=== PATIENT | male | born 1955 | race Caucasian/White ===

== ENCOUNTER 2025-08-05 09:44 | Emergency (ER) | payer OTHER, BC ==
[2025-08-05] MEDS ORDERED: KETOROLAC 30 MG/ML INJ ONE (10:11)
[2025-08-05] MEDS ORDERED: NA CHLORIDE 0.9% 500 ML ONE (10:11)
[2025-08-05] MEDS ORDERED: TAMSULOSIN 0.4 MG SR CAP ONE (10:11)
[2025-08-05] MEDS ORDERED: MAGNESIUM SULFATE 1 gm IVPB 1 GM/100 ML BAG IV ONE (10:12)
[2025-08-05 10:35] LABS: Absolute Lymphocytes (CBC) 0.9 K/uL (0.7-4.9); Hematocrit 40.8 % (39.6-49.0); Hemoglobin 14.0 g/dL (13.6-17.9); MCH 28.8 pg (27.0-35.0); MCHC 34.4 g/dL (32.0-36.0); MCV 83.7 fL (80-100); MPV 8.3 fL (7.6-11.3); Nucleated RBC Absolute Count 0.0 (0-0); Nucleated Red Blood Cells % 0.0 % (0-0); RBC Red Blood Cell Count 4.87 M/uL (4.33-5.43); White Blood Count 12.30 thou/uL (4.3-10.9)
--- NOTE | 2025-08-05 10:44 | RAD REPORT ---
Stone Protocol CLINICAL INDICATION: Male, 70 years old.right flank pain TECHNIQUE: CT abdomen and pelvis was performed, without IV contrast, as per department protocol using a CT stone protocol. Axial, sagittal and coronal reconstructions were obtained. One or more of the following dose reduction techniques were used: Automated exposure control, adjustment of the mA and/o r kV according to the patient size, and/or iterative reconstruction. Unless otherwise specified, incidental findings do not require dedicated imaging follow-up. [id number]. IV CONTRAST: Not administered. COMPARISON: No prior exams FINDINGS: The lack of intravenous contrast limits the sensitivity of this exam for evaluation of solid visceral organs, vascular structures, and retroperitoneum. LOWER CHEST: No acute process identified. No significant pericardial effusion. Mild coronary artery c alcifications. UPPER GI: No significant abnormality. LIVER: Hepatic steatosis, but otherwise unremarkable. GALLBLADDER/BILE DUCTS: Cholelithiasis without CT evidence of acute cholecystitis.? PANCREAS: No mass, ductal dilation, or ivanna-pancreatic fluid. SPLEEN: Unremarkable. ADRENALS: No adrenal masses. KIDNEYS AND URETERS: Moderate right-sided hydronephrosis secondary to a 9 mm stone at the right UPJ. Probable right interpolar renal cyst.. Limited evaluation for renal lesions in the absence of IV contrast. No renal calculi. ABDOMINAL AORTA AND OTHER VESSELS: Moderate atherosclerotic changes without aortic aneurysm. PERITONEUM: Small focus of nonspecific fat stranding the sigmoid mesocolon is probably of little acut e clinical significance. It could represent a remote omental infarct. LYMPH NODES: No pathologic lymphadenopathy. ABDOMINAL WALL: Small fat containing umbilical hernia. SMALL BOWEL/COLON: Small bowel has normal course and caliber. No colonic wall thickening or pericolon ic inflammatory changes. Normal appendix. Mild diverticulosis without diverticulitis. URINARY BLADDER: Underdistended but grossly unremarkable. REPRODUCTIVE ORGANS: No pathologic process. MUSCULOSKELETAL: Remote L2 and L3 compression fractures. ADDITIONAL FINDINGS: None. IMPRESSION: Moderate right-sided hydronephrosis secondary to a 9 mm stone at the right UPJ.
[2025-08-05 10:57] LABS: Anion Gap 10.9 mEq/L (5.0-15.0); BUN Blood Urea Nitrogen 16.0 mg/dL (7-18); Glucose Level 150.0 mg/dL (74-106); Potassium 3.9 mEq/L (3.5-5.1)
[2025-08-05 11:22] LABS: Sqamous Epithelial <5 /HPF (None Seen); Urine Crystals Unidentified Few /HPF (None Seen); Urine Culture Reflex Order NOT NEEDED; Urine Microscopic Reflex YN ORDER UMIC
[2025-08-05 11:35] LABS: Differential Total Cells Count 100; Segmented Neutrophils 87 % (40-80); Smudge Cells NOTED; Toxic Granulation PRESENT; White Blood Cell Scan DIFF (OK)
[2025-08-05 11:36] LABS: Anisocytosis 1+; Blood Morphology Comment NOTED (NOT SEEN); Ovalocytes SLIGHT; Poikilocytosis SLIGHT; Polychromasia SLIGHT; Stomatocytes 1+; Teardrop Cell FEW
--- NOTE | 2025-08-05 13:23 | EDPHYS ---
Physician Documentation [facility] Name: Trent Mar Jr Age: 70 yrs Sex: Male : 1955 Arrival Date: 08/05/2025 Time: 09:44 Bed 19 Private MD: ED Physician Chavo Florence HPI: 08/05 10:03 This 70 yrs old Male presents to ER via Ambulatory with complaints of Low Back Pain. rn 10:03 Patient reports right lower back pain that radiates to the groin, history of kidney rn stones and this feels identical. Has required multiple interventions in the past. Now pain has decreased significantly for the last 2 hours. Had hematuria yesterday, no hematuria today. No signs of retention. No fever or chills.. Historical: - Allergies: 10:15 No Known Allergies; ll1 - PMHx: 09:57 Kidney stone; ll1 10:15 Hypertensive disorder; Hypercholesterolemia; ll1 - PSHx: 09:57 Lithotripsy; kidney stent; ll1 - Immunization history:: Adult Immunizations up to date. - Infectious Disease History:: Denies. - Social history:: Smoking status: Patient denies any tobacco usage or history of. - Family history:: not pertinent. - Hospitalizations: : No recent hospitalization is reported. ROS: 10:03 Constitutional: Negative for fever, chills, and weight loss, Cardiovascular: Negative rn for chest pain, palpitations, and edema, Respiratory: Negative for shortness of breath, cough, wheezing, and pleuritic chest pain, Abdomen/GI: Negative for abdominal pain, nausea, vomiting, diarrhea, and constipation, Back: Positive for right lower back pain : Positive for hematuria yesterday, none today Neuro: Negative for headache, weakness, numbness, tingling, and seizure, Exam: 10:03 Constitutional: This is a well developed, well nourished patient who is awake, alert, rn and in no acute distress. Cardiovascular: Regular rate and rhythm. No pulse deficits. Respiratory: Speaking full sentences, unlabored. No increased work of breathing, no retractions or nasal flaring. Abdomen/GI: Soft, nontender Back: No CVA tenderness Vital Signs: 09:57 BP 196 / 102; Pulse 87; Resp 17; Temp 97.8(O); Pulse Ox 95% on R/A; Weight 111.13 kg; ll1 Height 5 ft. 10 in. ; Pain 2/10; 10:30 BP 150 / 69; Pulse 70; Resp 20; Pulse Ox 93% on R/A; Pain 4/10; ar8 11:30 BP 155 / 76; Pulse 72; Resp 20; Pulse Ox 94% on R/A; ar8 12:15 BP 140 / 76; Pulse 64; Resp 18; Pulse Ox 92% on R/A; ar8 13:15 BP 148 / 91; Pulse 71; Resp 18; Pulse Ox 95% on R/A; ar8 13:35 Pain 0/10; ar8 09:57 Body Mass Index 35.15 (111.13 kg, 177.8 cm) ll1 09:57 Pain Scale: Adult ll1 10:30 Pain Scale: Adult ar8 13:35 Pain Scale: Adult ar8 MDM: 09:48 Medical Screening Exam initiated rn 13:19 Differential diagnosis: UTI, Kidney stone, ureteral stone. Data reviewed: vital signs, rn nurses notes, lab test result(s), radiologic studies, CT scan, and as a result, I will admit patient. Consideration of Admission/Observation Escalation of care including admission/observation considered. Independent interpretation of the following test(s) in the Emergency Department CT Scan: My interpretation is CT stone protocol images show right proximal moderate-sized stone per my interpretation. Care significantly affected by the following chronic conditions: Hypertension, Recurrent kidney stones. Counseling: I had a detailed discussion with the patient and/or guardian regarding the historical points, exam findings, and any diagnostic results supporting the discharge/admit diagnosis, lab results, radiology results, the need for further work-up and treatment in the hospital, the need to transfer to another facility, [facility] does not immediately have the required specialist. Response to treatment: the patient's symptoms have markedly improved after treatment. ED course: Patient with 9 mm proximal right ureteral stone with hydro. No evidence of acute kidney failure or urinary tract infection. I recommended safest management would be transfer as we do not have urology for possible intervention. Patient states has done this multiple times in does not think that they are going to intervene at this time. Patient states not feeling any pain and feels very comfortable. He wants to go home. Spouse sounds like she wants patient transferred. Given multiple opportunities for deliberation and his ultimate decision was to be discharged home. Patient understands risks of worsening obstruction and hydronephrosis with even urine leak or need for surgery.. 08/05 10:02 Order name: CBC with Diff; Complete Time: 11:39 rn 08/05 10:02 Order name: Basic Metabolic Panel; Complete Time: 11:00 rn 08/05 10:02 Order name: UA Rfx Yvon Cult if indicated; Complete Time: 11:39 rn 08/05 10:40 Order name: CBC Smear Scan; Complete Time: 11:39 EDMS 08/05 11:36 Order name: Manual Differential; Complete Time: 11:39 EDMS 08/05 10:02 Order name: CT Stone Protocol; Complete Time: 10:45 rn 08/05 10:02 Order name: IV Start; Complete Time: 10:26 rn Administered Medications: 10:22 Drug: Flomax PO 0.4 mg PO once Route: PO; ar8 11:28 Follow up: Response: No adverse reaction ar8 10:22 Drug: NS 0.9% IV 500 ml 500 ml IV at 1 bolus once; to be given as a bolus over 30 ar8 minutes Volume: 500 ml; Route: IV; Rate: 1 bolus; Site: right antecubital; 11:00 Follow up: Response: No adverse reaction; IV Status: Completed infusion; IV Intake: ar8 500ml 10:23 Drug: Ketorolac IVP 15 mg IVP once Route: IVP; Site: right antecubital; ar8 11:00 Follow up: Response: No adverse reaction; Pain is decreased ar8 10:24 Drug: Magnesium Sulfate IVPB 1 grams IVPB once over 1 hrs Route: IVPB; Infused Over: 1 ar8 hrs; Site: right antecubital; 11:25 Follow up: Response: No adverse reaction; IV Status: Completed infusion; IV Intake: ar8 100ml 13:36 Drug: Trimethoprim-Sulfamethoxazole PO (160 mg-800 mg (DS) 1 tablet PO once Route: PO; ar8 13:38 Follow up: Response: No adverse reaction; Medication administered at discharge. ar8 Disposition Summary: 08/05/25 13:23 Discharge Ordered Notes: Location: Home rn Problem: new rn Symptoms: have improved rn Condition: Stable rn Diagnosis - Calculus of ureter rn - Hydronephrosis with renal and ureteral calculous obstruction rn Followup: rn - With: Private Physician - When: As needed - Reason: Recheck today's complaints, Re-evaluation by your physician Discharge Instructions: - Discharge Summary Sheet rn - Kidney Stones rn - Renal Colic rn Forms: - Medication Reconciliation Form rn - Antibiotic supervisor modern languages - Prescription Opioid Use rn - Patient Portal Instructions rn - Leadership Thank You Letter rn Prescriptions: - Flomax 0.4 mg Oral capsule - take 1 capsule ORAL route daily As needed Stop taking once you feel that you rn have passed your stone; 14 capsule; Refills: 0, Product Selection Permitted - ondansetron 4 mg Oral Tablet,disintegrating - take 1 tablet ORAL route every 12 hours as needed for nausea and vomiting; 14 rn tablet; Refills: 0, Product Selection Permitted - Tramadol 50 mg Oral Tablet - take 1 tablet ORAL route every 8 hours as needed; 12 tablet; Refills: 0, rn Product Selection Permitted - Bactrim DS 800-160 mg Oral Tablet - take 1 tablet ORAL route every 12 hours for 10 days; 20 tablet; Refills: 0, rn Product Selection Permitted Signatures: Dispatcher [employer] EDMS Chavo Florence MD MD rn Lewis, Lynsay, RN RN ll1 Leon Pink RN RN ar8 Corrections: (The following items were deleted from the chart) 10:02 10:02 Stone Protocol+CT.RAD.BRZ ordered. EDMS EDMS 10:02 10:02 CBC+H.LAB.BRZ ordered. EDMS EDMS 10:02 10:02 BASIC METABOLIC PANEL+C.LAB.BRZ ordered. EDMS EDMS 10:02 10:02 UA Rfx Yvon Cult if indicated+U.LAB.BRZ ordered. EDMS EDMS 10:02 09:57 Social history: Smoking status: unknown ll1 ll1
--- NOTE | 2025-08-05 13:23 | ER ---
Nurse's Notes [facility] Name: Trent Mar Jr Age: 70 yrs Sex: Male : 1955 Arrival Date: 08/05/2025 Time: 09:44 Bed 19 Private MD: Diagnosis: Calculus of ureter;Hydronephrosis with renal and ureteral calculous obstruction Presentation: 08/05 09:57 Chief complaint: Patient states: R flank pain with blood in urine for 2 days. N/V this ll1 morning. Coronavirus screen: Client denies travel out of the [place] in the last 14 days. At this time, the client does not indicate any symptoms associated with coronavirus-19. Ebola Screen: Patient denies travel to an Ebola-affected area in the 21 days before illness onset. Initial Sepsis Screen: Does the patient meet any 2 criteria? No. Patient's initial sepsis screen is negative. Does the patient have a suspected source of infection? No. Patient's initial sepsis screen is negative. Risk Assessment: Do you want to hurt yourself or someone else? Patient reports no desire to harm self or others. Onset of symptoms was August 04, 2025. 09:57 Method Of Arrival: Ambulatory ll1 09:57 Acuity: SILVESTRE 2 ll1 Historical: - Allergies: 10:15 No Known Allergies; ll1 - PMHx: 09:57 Kidney stone; ll1 10:15 Hypertensive disorder; Hypercholesterolemia; ll1 - PSHx: 09:57 Lithotripsy; kidney stent; ll1 - Immunization history:: Adult Immunizations up to date. - Infectious Disease History:: Denies. - Social history:: Smoking status: Patient denies any tobacco usage or history of. - Family history:: not pertinent. - Hospitalizations: : No recent hospitalization is reported. Screenin:31 [facility] ED Fall Risk Assessment (Adult) History of falling in the last 3 months, ar8 including since admission No falls in past 3 months (0 pts) Confusion or Disorientation No (0 pts) Intoxicated or Sedated No (0 pts) Impaired Gait No (0 pts) Mobility Assist Device Used No (0 pt) Altered Elimination No (0 pt) Score/Fall Risk Level 0 - 2 = Low Risk Oriented to surroundings, Maintained a safe environment. Abuse screen: Denies threats or abuse. Nutritional screening: No deficits noted. Tuberculosis screening: No symptoms or risk factors identified. Assessment: 10:21 General: Appears uncomfortable, Behavior is calm, cooperative. ar8 10:21 Pain: Complains of pain in right low back Pain currently is 4 out of 10 on a pain ar8 scale. Neuro: Level of Consciousness is awake, alert, obeys commands, Oriented to person, place, time, situation. Cardiovascular: Patient's skin is warm and dry. Respiratory: Airway is patent Respiratory effort is even, unlabored, Respiratory pattern is regular, symmetrical. GI: No signs and/or symptoms were reported involving the gastrointestinal system. : Reports right sided flank pain. Derm: Reports swelling and redness to right thumb x4 days. Vital Signs: 09:57 BP 196 / 102; Pulse 87; Resp 17; Temp 97.8(O); Pulse Ox 95% on R/A; Weight 111.13 kg; ll1 Height 5 ft. 10 in. ; Pain 2/10; 10:30 BP 150 / 69; Pulse 70; Resp 20; Pulse Ox 93% on R/A; Pain 4/10; ar8 11:30 BP 155 / 76; Pulse 72; Resp 20; Pulse Ox 94% on R/A; ar8 12:15 BP 140 / 76; Pulse 64; Resp 18; Pulse Ox 92% on R/A; ar8 13:15 BP 148 / 91; Pulse 71; Resp 18; Pulse Ox 95% on R/A; ar8 13:35 Pain 0/10; ar8 09:57 Body Mass Index 35.15 (111.13 kg, 177.8 cm) ll1 09:57 Pain Scale: Adult ll1 10:30 Pain Scale: Adult ar8 13:35 Pain Scale: Adult ar8 ED Course: 09:48 Patient arrived in ED. al6 09:48 Chavo Florence MD is Attending Physician. rn 09:49 Arm band placed on Patient placed in an exam room, on a stretcher. ll1 09:58 Triage completed. ll1 09:59 Leon Pink, LAKESHIA is Primary Nurse. ar8 10:[address] via wheelchair. ar8 10:21 Patient moved back from CT. ar8 10:21 No provider procedures requiring assistance completed. Inserted saline lock: 20 gauge ar8 in right antecubital area, using aseptic technique. Blood collected. Flushed with 10 mL NS. 10:23 CT Stone Protocol In Process Unspecified. EDMS 10:26 Basic Metabolic Panel Sent. ar8 10:26 CBC with Diff Sent. ar8 10:31 Bed in low position. Call light in reach. Side rails up X2. Provided Education on: plan ar8 of care, diagnostics, and estimated wait time. Pulse ox on. NIBP on. 11:10 UA Rfx Yvon Cult if indicated Sent. ar8 13:27 IV discontinued, intact, bleeding controlled, No redness/swelling at site. Pressure ar8 dressing applied. Administered Medications: 10:22 Drug: Flomax PO 0.4 mg PO once Route: PO; ar8 11:28 Follow up: Response: No adverse reaction ar8 10:22 Drug: NS 0.9% IV 500 ml 500 ml IV at 1 bolus once; to be given as a bolus over 30 ar8 minutes Volume: 500 ml; Route: IV; Rate: 1 bolus; Site: right antecubital; 11:00 Follow up: Response: No adverse reaction; IV Status: Completed infusion; IV Intake: ar8 500ml 10:23 Drug: Ketorolac IVP 15 mg IVP once Route: IVP; Site: right antecubital; ar8 11:00 Follow up: Response: No adverse reaction; Pain is decreased ar8 10:24 Drug: Magnesium Sulfate IVPB 1 grams IVPB once over 1 hrs Route: IVPB; Infused Over: 1 ar8 hrs; Site: right antecubital; 11:25 Follow up: Response: No adverse reaction; IV Status: Completed infusion; IV Intake: ar8 100ml 13:36 Drug: Trimethoprim-Sulfamethoxazole PO (160 mg-800 mg (DS) 1 tablet PO once Route: PO; ar8 13:38 Follow up: Response: No adverse reaction; Medication administered at discharge. ar8 Intake: 11:00 IV: 500ml; Total: 500ml. ar8 11:25 IV: 100ml; Total: 600ml. ar8 Outcome: 13:23 Discharge ordered by . rn 13:38 Discharged to home ambulatory, ar8 13:38 Condition: stable 13:38 Discharge instructions given to patient, significant other, Instructed on discharge instructions, follow up and referral plans. medication usage, Demonstrated understanding of instructions, follow-up care, medications, Prescriptions given X 4, 13:40 Patient left the ED. ar8 Signatures: Dispatcher [employer] EDMS Chavo Florence MD MD rn Lewis, Lynsay, RN RN ll1 [address] Leon Pink RN RN ar8 Corrections: (The following items were deleted from the chart) 09:59 09:57 Chief complaint: Patient states: R flank pain with blood in urine for 2 days. [place] [id number] 10:02 09:57 Social history: Smoking status: unknown [place] [id number] 10:02 09:57 BP 196 / 102; Pulse 87bpm; Resp 17bpm; Pulse Ox 95% RA; ll1 1
[2025-08-05] MEDS ORDERED: SMZ./TMP. 800/160 MG TABLET ONE (13:30)
[2025-08-05 13:55] VITALS: TEMP 97.8
[2025-08-05 14:00] VITALS: BP 148/91; O2SAT 95
== END 2025-08-05 13:40 | disposition home or self-care (01) ==
LOC: ER 09:44
DX: N13.2 Hydronephrosis with renal and ureteral calculous obstruction (principal); Z87.442 Personal history of urinary calculi
CPT/HCPCS: 96365; 85025; 81001; 80048; 36415; 76377; 74176; 96375; 99285; J1885; J3475; J7040